=== PATIENT | female | born 1955 | race Caucasian/White ===

== ENCOUNTER 2021-03-11 07:32 | Observation (INO) | payer OTHER, MEDICAID, SELFPAY ==
[2021-03-11] VITALS (27 sets, daily range): BP systolic 160–244; BP diastolic 73–109; PULSE 74–102; RESP 12–27; TEMP 36.2–37.3; O2SAT 60–99; BMI 24.0; BMI 23.2
--- NOTE | 2021-03-11 08:18 | ED_ITS ---
HPI - Altered Mental Status General Chief Complaint: Weakness Stated Complaint: high BP, stomach pain, bleeding x7 days Time Seen by Provider: 03/11/21 08:02 Source: patient, family and RN notes reviewed Mode of arrival: Family Vehicle Limitations: no limitations History of Present Illness HPI narrative: Patient is a 65-year-old female history of chronic kidney disease, strokes, UTI, hypertension presenting with high blood pressure and decreasing mental status. She apparently was admitted to [facility] on March 03 she had a dialysis catheter that according to daughter was bothering her and it was removed. According to the [facility] report there appears to have been conversations of palliative care and hospice however daughter says from her recent hospital stay she no longer needs hospice but is not getting dialysis any longer. She has been getting around by wheelchair for over a month she needs help with her daily living activities there has been a gradual decline. However daughter says yesterday she was talking more than she is today she overall seems weak and lethargic. She is complaining of nausea and abdominal pain. Blood pressure is noted to be quite elevated with systolic greater than 200. She is afebrile. Patient denies any chest pain or palpitations no headache she does not have any vomiting. Previous strokes have left her left side weaker than her right but no new deficits are noted. Daughter says she was rubbing her eye more and thought she might be having another stroke. Daughter is DPOA but patient currently lives with son on [place]. Patient has had at least 4 small infarcts in right lateral mid brain, left caudate, corpus clots some and left occipital lobe which were likely embolic in the setting of hypercoagulable state with subtherapeutic INR who now has left- sided weakness and expressive aphasia. She was discharged from inpatient rehab in [facility] on 11/11/2020. Since then patient had progression chronic kidney disease leading her to end stage and was placed on hemodialysis. She was on dialysis for 2 months as a promise to her and she stopped in late January and enrolled in hospice on 02/06/2021. She had decided to be comfort care and most of her medications including warfarin were stopped at that time. She is primarily bedbound and is able to transfer to a wheelchair with a lot of assistance. She had improvement of her creatinine and was making urine so thought not to need dialysis at that time. She was brought into the hospital on 03/03/2021 for thought of having an infected dialysis catheter she was distant rolled from hospice so that the CT catheter could be removed. Related Data Allergies Allergy/AdvReac Type Severity Reaction Status Date / Time No Known Drug Allergies Allergy Verified 03/11/21 08:25 Review of Systems Review of Systems ROS Unobtainable: All systems reviewed & are unremarkable except as noted in HPI and below Constitutional Constitutional: Denies chills, Denies fever(s), Denies frequent falls, Denies headache(s), Reports lethargy and Reports weakness Eyes Eyes: Reports as per HPI and Reports irritation ENT Ears, Nose, Mouth, and Throat: Denies headache(s) Cardiovascular Cardiovascular: Denies chest pain, Denies syncope, Denies irregular heart rhythm, Denies lightheadedness, Denies palpitations, Denies dyspnea, Denies dyspnea on exertion and Denies orthopnea Respiratory Respiratory: Denies cough, Denies dyspnea, Denies dyspnea on exertion and Denies wheezing Gastrointestinal Gastrointestinal: Reports abdominal pain, Denies change in bowel habits, Denies diarrhea, Reports nausea and Denies vomiting Genitourinary Genitourinary: Reports as per HPI Genitourinary: Reports as per HPI Musculoskeletal Musculoskeletal: Denies back pain, Denies myalgias and Denies numbness Integumentary/Breasts Skin/Breast: Denies pruritus, Denies erythema, Denies rash and Denies wounds Neurologic Neurologic: Reports as per HPI, Denies abnormal speech, Denies syncope, Denies frequent falls, Denies headache(s), Denies numbness and Reports weakness Endocrine Endocrine: Denies palpitations Allergic/Immunologic Allergic/Immunologic: Denies wheezing Patient History Medical History Atrial fibrillation Chronic kidney disease Coronary artery disease CVA (cerebral vascular accident) Depression Hypertension Seizure disorder Social History Smoking Status: Never smoker Exam Initial Vital Signs Initial Vital Signs: Vital Signs Pulse Rate 93 H 03/11/21 08:01 Blood Pressure 240/107 H 03/11/21 08:01 Pulse Oximetry 98 03/11/21 08:01 GENERAL: Generally weak alert female and in no acute distress. HEENT: Head atraumatic,EOMI, pupils reactive, face symmetric, dry mucous membranes, voice is quite thin and soft CARDIOVASCULAR: Regular rate and rhythm without murmurs, rubs or gallops. RESPIRATORY: Breath sounds equal bilaterally, no wheezes rales or rhonchi. ABDOMEN: Soft, minimal nonfocal tenderness. Normoactive bowel sounds all 4 quadrants. No guarding or rebound. EXTREMITIES: Normal range of motion, no clubbing or edema. Neurovascularly intact NEUROLOGICAL: Alert and oriented x4.Normal gait and speech. Cranial nerves II through XII grossly intact. Good [id number], slightly greater strength in right > left, no dysarthria or aphasia, sensation in tact to soft touch bilaterally, no visual changes, no facial droop SKIN: Warm, dry, no laceration, no petechiae, no rashes or lesions. Course Orders Ordered: ED Orders 03/11/21 08:20 CT head/brain wo con Stat XR chest 1V Stat 03/11/21 08:40 Complete Blood Count AUTO DIFF Stat Comprehensive Metabolic Panel Stat Lactate (Lactic Acid) Stat Partial Thromboplastin Time Stat Procalcitonin Stat Prothrombin Time INR Stat Troponin & CK Cardiac Panel Stat 03/11/21 09:30 Blood Culture Stat 03/11/21 11:10 Troponin I Stat 03/11/21 11:50 Urine Microscopic Stat 03/11/21 14:16 Consult to [employer] [facility] - Machine Cleaner Stat Discontinued Medications Labetalol HCl (Labetalol 20 Mg/4 Ml Syringe) 10 mg IV NOW ONE Stop: 03/11/21 10:18 Last Admin: 03/11/21 10:56 Dose: 10 mg Documented by: KANA Vital Signs Vital signs: Vital Signs - 8 hr 03/11/21 08:01 03/11/21 08:12 03/11/21 08:30 Temperature 97.2 F L Pulse Rate 93 H 102 H 95 H Respiratory Rate 18 20 Blood Pressure 240/107 H 215/100 H 221/95 H Pulse Oximetry 98 98 90 L 03/11/21 09:00 03/11/21 09:30 03/11/21 09:57 Temperature Pulse Rate 86 89 94 H Respiratory Rate 18 19 21 Blood Pressure 226/98 H Pulse Oximetry 98 60 L 96 03/11/21 10:00 03/11/21 10:30 03/11/21 10:56 Temperature Pulse Rate 100 H 93 H 91 H Respiratory Rate 22 21 Blood Pressure 240/107 H 240/107 H Pulse Oximetry 97 98 03/11/21 11:00 03/11/21 11:06 03/11/21 11:28 Temperature Pulse Rate 84 79 74 Respiratory Rate 25 H 22 20 Blood Pressure 227/92 H 217/88 H 217/88 H Pulse Oximetry 96 95 96 03/11/21 11:30 03/11/21 12:00 03/11/21 12:02 Temperature Pulse Rate 89 84 83 Respiratory Rate 16 27 H Blood Pressure 177/86 H 240/101 H 219/98 H Pulse Oximetry 95 98 03/11/21 12:03 03/11/21 12:10 03/11/21 12:30 Temperature 97.8 F Pulse Rate 86 85 81 Respiratory Rate 20 18 12 Blood Pressure 219/98 H 219/98 H 229/100 H Pulse Oximetry 98 97 98 03/11/21 13:00 03/11/21 13:30 03/11/21 14:00 Temperature Pulse Rate 84 101 H 89 Respiratory Rate 21 12 25 H Blood Pressure 191/73 H 244/109 H Pulse Oximetry 99 97 96 03/11/21 14:01 Temperature Pulse Rate 98 H Respiratory Rate 22 Blood Pressure 231/99 H Pulse Oximetry 98 MDM - Altered Mental Status Lab Data Attestation: I reviewed the patient's lab results. Result diagrams: 03/11/21 08:40 03/11/21 08:40 Labs: Lab Results 03/11/21 03/11/21 03/11/21 Range/Units 08:40 08:40 08:40 WBC 8.7 (4.5-11.0) X10^3/uL RBC 3.90 L (4.0-5.2) X10^6/uL Hgb 11.4 L (12.0-16.0) g/dL Hct 35.3 L (36-46) % MCV 90.5 (80-100) fL MCH 29.3 (26-34) PG MCHC 32.4 (30-36) % RDW 18.4 H (11.6-14.8) % Plt Count 261 (150-400) X10^3/uL Neut % (Auto) 79.8 H (50-75) % Lymph % (Auto) 10.9 L (25-40) % [place] % (Auto) 5.4 (3-14) % Eos % (Auto) 2.5 (2-4) % Baso % (Auto) 1.4 (0-2) % Neut # (Auto) 7000 (3341-2642) /uL Lymph # (Auto) 900 L (6326-6736) /uL [place] # (Auto) 500 (0-900) /uL Eos # (Auto) 200 (0-450) /uL Baso # (Auto) 100 (0-100) /uL PT 11.3 (10.1-12.7) SECONDS INR 1.0 (0.9-1.3) APTT (26.4-36.2) SECONDS Sodium 142 (137-145) mmol/L Potassium 3.8 (3.4-5.1) mmol/L Chloride 114 H (98-107) mmol/L Carbon Dioxide 20 L (22-32) mmol/L BUN 31 H (7-17) mg/dL Creatinine 2.70 H (0.52-1.04) mg/dL Estimated GFR 17.7 L (>60) mL/min BUN/Creatinine Ratio 11.5 (6-22) Glucose 104 (80-110) mg/dL Lactate (0.7-2.1) mmol/L Calcium 9.4 (8.4-10.2) mg/dL Total Bilirubin 0.2 (0.2-1.3) mg/dL AST 18 (14-36) IU/L ALT 11 (<35) IU/L Alkaline Phosphatase 99 (38-126) U/L Total Creatine Kinase < 20 L (30-135) U/L CK-MB (CK-2) TNP CK-MB (CK-2) Rel Index TNP Troponin I 0.042 H (0.01-0.034) ng/mL Total Protein 6.5 (6.3-8.2) g/dL Albumin 3.2 L (3.5-5.0) g/dL Globulin 3.3 (1.7-4.1) g/dL Albumin/Globulin Ratio 1.0 (1.0-2.8) Procalcitonin 0.20 (<0.5) ng/mL Urine RBC (0-5/HPF) Urine WBC (0-5/HPF) Ur Squamous Epith Cells (0-5/HPF) Amorphous Sediment Urine Bacteria (None) Ur Culture Indicated? 03/11/21 03/11/21 03/11/21 Range/Units 08:40 08:40 11:10 WBC (4.5-11.0) X10^3/uL RBC (4.0-5.2) X10^6/uL Hgb (12.0-16.0) g/dL Hct (36-46) % MCV (80-100) fL MCH (26-34) PG MCHC (30-36) % RDW (11.6-14.8) % Plt Count (150-400) X10^3/uL Neut % (Auto) (50-75) % Lymph % (Auto) (25-40) % [place] % (Auto) (3-14) % Eos % (Auto) (2-4) % Baso % (Auto) (0-2) % Neut # (Auto) (0634-6873) /uL Lymph # (Auto) (6688-2817) /uL [place] # (Auto) (0-900) /uL Eos # (Auto) (0-450) /uL Baso # (Auto) (0-100) /uL PT (10.1-12.7) SECONDS INR (0.9-1.3) APTT 36 (26.4-36.2) SECONDS Sodium (137-145) mmol/L Potassium (3.4-5.1) mmol/L Chloride (98-107) mmol/L Carbon Dioxide (22-32) mmol/L BUN (7-17) mg/dL Creatinine (0.52-1.04) mg/dL Estimated GFR (>60) mL/min BUN/Creatinine Ratio (6-22) Glucose (80-110) mg/dL Lactate 1.1 (0.7-2.1) mmol/L Calcium (8.4-10.2) mg/dL Total Bilirubin (0.2-1.3) mg/dL AST (14-36) IU/L ALT (<35) IU/L Alkaline Phosphatase (38-126) U/L Total Creatine Kinase (30-135) U/L CK-MB (CK-2) CK-MB (CK-2) Rel Index Troponin I 0.041 H (0.01-0.034) ng/mL Total Protein (6.3-8.2) g/dL Albumin (3.5-5.0) g/dL Globulin (1.7-4.1) g/dL Albumin/Globulin Ratio (1.0-2.8) Procalcitonin (<0.5) ng/mL Urine RBC (0-5/HPF) Urine WBC (0-5/HPF) Ur Squamous Epith Cells (0-5/HPF) Amorphous Sediment Urine Bacteria (None) Ur Culture Indicated? 03/11/21 Range/Units 11:50 WBC (4.5-11.0) X10^3/uL RBC (4.0-5.2) X10^6/uL Hgb (12.0-16.0) g/dL Hct (36-46) % MCV (80-100) fL MCH (26-34) PG MCHC (30-36) % RDW (11.6-14.8) % Plt Count (150-400) X10^3/uL Neut % (Auto) (50-75) % Lymph % (Auto) (25-40) % [place] % (Auto) (3-14) % Eos % (Auto) (2-4) % Baso % (Auto) (0-2) % Neut # (Auto) (7580-7640) /uL Lymph # (Auto) (8191-6573) /uL [place] # (Auto) (0-900) /uL Eos # (Auto) (0-450) /uL Baso # (Auto) (0-100) /uL PT (10.1-12.7) SECONDS INR (0.9-1.3) APTT (26.4-36.2) SECONDS Sodium (137-145) mmol/L Potassium (3.4-5.1) mmol/L Chloride (98-107) mmol/L Carbon Dioxide (22-32) mmol/L BUN (7-17) mg/dL Creatinine (0.52-1.04) mg/dL Estimated GFR (>60) mL/min BUN/Creatinine Ratio (6-22) Glucose (80-110) mg/dL Lactate (0.7-2.1) mmol/L Calcium (8.4-10.2) mg/dL Total Bilirubin (0.2-1.3) mg/dL AST (14-36) IU/L ALT (<35) IU/L Alkaline Phosphatase (38-126) U/L Total Creatine Kinase (30-135) U/L CK-MB (CK-2) CK-MB (CK-2) Rel Index Troponin I (0.01-0.034) ng/mL Total Protein (6.3-8.2) g/dL Albumin (3.5-5.0) g/dL Globulin (1.7-4.1) g/dL Albumin/Globulin Ratio (1.0-2.8) Procalcitonin (<0.5) ng/mL Urine RBC None seen (0-5/HPF) Urine WBC 5-10/hpf H (0-5/HPF) Ur Squamous Epith Cells 5-10 /hpf H (0-5/HPF) Amorphous Sediment 2+ Urine Bacteria Many (>30) H (None) Ur Culture Indicated? Cult not indicated Urine Dip Bedside Urine Glucose Negative Bedside Urine Bilirubin - Negative Bedside Urine Ketone - Negative Urine Specific [place] 1.030 Bedside Urine Occult Blood ++ Bedside Urine pH 6.0 Bedside Urine Protein ++ 100 Bedside Urine Urobilinogen - Negative Bedside Urine Nitrite - Negative Bedside Urine Leukocytes +/- [address] scan - head: Radiologist's Impression: PROCEDURE: CT HEAD/BRAIN WO CON INDICATIONS: weakness, prior strokes TECHNIQUE: Noncontrast 4.5 mm thick angled axial sections acquired from the foramen magnum to the vertex, with coronal and sagittal reformats. For radiation dose reduction, the following was used: automated exposure control, adjustment of mA and/or kV according to patient size. COMPARISON: None. FINDINGS: Image quality: Excellent. CSF spaces: Basal cisterns are patent. No extra-axial fluid collections. The ventricles are symmetric in size and shape. Brain: No intracranial bleeds or masses. There is cerebral volume loss for age, with resultant ventricular and sulcal prominence. There are severe periventricular and deep white matter chronic small vessel ischemic changes. Old fairly large predominantly deep white matter right MCA distribution infarct which extends to the cortex as well. Old focal left MCA distribution frontal temporal infarct. Old right thalamic lacuna r infarct. There is intracranial internal carotid artery atherosclerosis. Skull and face: Calvarium and visualized facial bones appear intact, without suspicious lesions. Sinuses: Visualized sinuses and mastoids are clear. IMPRESSION: 1. Severe small vessel ischemic change, multiple old infarcts. 2. No evidence of acute stroke, hemorrhage, or mass. Dictated by: Edgardo Lowry M.D. on 03/11/2021 at 9:14 Chest x-ray: Radiologist's Impression: PROCEDURE: XR CHEST 1V INDICATIONS: weakness TECHNIQUE: One view of the chest was acquired. COMPARISON: None. FINDINGS: Surgical changes and devices: None. Lungs and pleura: Lungs are clear. No pleural effusions or pneumothorax. Mediastinum: Mediastinal contours appear normal. Mild cardiomegaly. Bones and chest wall: No suspicious bony lesions. Overlying soft tissues appear unremarkable. IMPRESSION: Mild cardiomegaly. No evidence acute pulmonary process. Dictated by: Edgardo Lowry M.D. on 03/11/2021 at 9:16 Approved by: Edgardo Lowry M.D. on 03/11/2021 at 9:17 ECG Data Attestation: I personally reviewed and interpreted this ECG as follows: Prior ECG tracings: not available for review Interpretation: Normal sinus rhythm rate 89 p.r. interval 152 QRS [address] changes or T-wave inversions no priors to compare Q-wave noted in ATV F only. MDM Narrative Medical decision making narrative: Patient is alert she is very soft-spoken but is able to answer some questions. I have spoken with her about her goals she does not want dialysis she states that she has not been taking her medications she is not sure if she should. I have discussed with daughter who apparently left to go back to [place]. The patient is difficult to care for at home they are requiring more help and what is available to them. The patient has not yet read and rolled in hospice she is not taking her medications she is per sistently hypertensive with systolic greater than 200. I did give her dose of labetalol in the ED which helped only slightly. This may or may not be contributing to her worsening weakness. Patient says that she does not want dialysis have discussed with her hospice as an option. Indeterminate troponin thought to be due to chronic kidney disease with little size changer 2 hours rather than cardiac. She has no sign of infection no leukocytosis or signs of UTI. The patient's abdomen is soft continues to be soft in the emergency department. At this time I see no need for imaging. She has not required anything for pain while in the emergency department. Dr. Shirley in ED to see and evaluate patient accepts for observation Discharge Plan Departure Patient Disposition: Admitted As Inpatient Clinical Impression: Hypertensive emergency, Chronic kidney disease Admit Date/Time: 03/11/21 14:16 Admit Provider: Daniel Shirley
[2021-03-11 08:56] LABS: Add Manual Diff / Slide Review NO; Basophils Absolute Auto 100 /uL (0-100); Basophils Percent Auto 1.4 % (0-2); Eosinophils Absolute Auto 200 /uL (0-450); Eosinophils Percent Auto 2.5 % (2-4); Hematocrit 35.3 % (36-46); Hemoglobin 11.4 g/dL (12.0-16.0); Lymphocytes Absolute Auto 900 /uL (1100-4500); Lymphocytes Percent Auto 10.9 % (25-40); Mean Corpuscular HGB Conc 32.4 % (30-36); Mean Corpuscular Hemoglobin 29.3 PG (26-34); Mean Corpuscular Volume 90.5 fL (80-100); Monocytes Absolute Auto 500 /uL (0-900); Monocytes Percent Auto 5.4 % (3-14); Neutrophils Absolute Auto 7000 /uL (1500-7000); Neutrophils Percent Auto 79.8 % (50-75); Platelet Count 261 X10^3/uL (150-400); Red Cell Distribution Width 18.4 % (11.6-14.8); White Blood Cell Count 8.7 X10^3/uL (4.5-11.0)
[2021-03-11 09:01] LABS: Prothrombin Time 11.3 SECONDS (10.1-12.7)
[2021-03-11 09:05] LABS: Lactate (Lactic Acid) 1.1 mmol/L (0.7-2.1)
[2021-03-11 09:06] LABS: Alanine Aminotransferase 11 IU/L (<35); Albumin 3.2 g/dL (3.5-5.0); Alkaline Phosphatase 99 U/L (38-126); Aspartate Aminotransferase 18 IU/L (14-36); BUN Creatinine Ratio 11.5 (6-22); Bilirubin Total 0.2 mg/dL (0.2-1.3); Blood Urea Nitrogen 31 mg/dL (7-17); Calcium 9.4 mg/dL (8.4-10.2); Carbon Dioxide 20 mmol/L (22-32); Chloride 114 mmol/L (98-107); Creatine Kinase < 20 U/L (30-135); Estimated Glomerular Filt Rate 17.7 mL/min (>60); Globulin 3.3 g/dL (1.7-4.1); Glucose 104 mg/dL (80-110); HEMOLYSIS < 15 (0-50); Potassium 3.8 mmol/L (3.4-5.1); Sodium 142 mmol/L (137-145); Total Protein 6.5 g/dL (6.3-8.2)
[2021-03-11 09:10] LABS: PTT Partial Thromboplastin Tim 36 SECONDS (26.4-36.2)
[2021-03-11 09:19] LABS: Troponin I 0.042 ng/mL (0.01-0.034)
[2021-03-11] MEDS: LABETALOL 20 MG/4 ML SYRINGE 10 MG IV (10:56)
[2021-03-11 11:46] LABS: Troponin I 0.041 ng/mL (0.01-0.034)
[2021-03-11 12:34] LABS: RBC Urine None Seen (0-5/HPF)
[2021-03-11 12:44] LABS: Amorphous Sediment Urine 2+; Squamous Epithelial Cell Urine 5-10 /HPF (0-5/HPF); WBC Urine 5-10/HPF (0-5/HPF)
[2021-03-11 12:45] LABS: Bacteria Urine Many (>30); Culture Indicated Urine Cult Not Indicated
--- NOTE | 2021-03-11 13:05 | PC.NURSE ---
called daughter, Supriya tran 2 and son Garth. pt is to be discharged and Dr. Echols would like to speak to the family. No call back.
[2021-03-11] MEDS: carvediloL 12.5 MG TABLET PO (16:20)
[2021-03-11] MEDS: AMLODIPINE 5 MG TABLET 10 MG PO (16:20)
--- NOTE | 2021-03-11 17:50 | PC.NURSE ---
Addendum entered by Thu Mccurdy R.N. 03/11/21 22:06: Pt restless, moving about the bed. Calls out into hallway and staff attend to pt. Pt states feels stomach is upset, but can provide no further details or discussion. Pt denies need to void. Repositioned in bed with staff members x 2. Head of bed elevated and pt given ativan. Pt turns self over in bed and closes eyes. Bed alarm in place. Addendum entered by Thu Mccurdy R.N. 03/11/21 20:08: Pt calling out into hallway. This headline writer enters room and pt has legs drawn up. Asked pt if scd's are causing discomfort. Pt relies, They send shooting pain up my leg. Scd's removed. Pt turns self and positions self in bed. Buttocks is reddened and barrier cream was liberally applied. Addendum entered by Thu Mccurdy R.N. 03/11/21 19:29: Pt restless in bed and moving legs off of bed. Inquired of pt if needs to urinate and pt nods in the affirmative. Placed on bedpan and pt is able to lift hips for placement. Incontinent in brief urine and stool but no void in bedpan. Inquired of pt if having pain and patient puts hand on above pubis, but provides no further conversation. Tylenol administered for comfort. Original Note: Pt is nonverbal when this headline writer performs assessment. Follows commands appropriately. Generalized weakness. Head of bed upright for meds/oral intake. No swallowing deficit noticed. Dinner tray set up and pt is able to feed self. Denies pain when asked.
[2021-03-11 18:11] LABS: COVID19 - ADMIT (NP swab/PCR) Negative (Negative)
[2021-03-11] MEDS: ACETAMINOPHEN 325 MG TABLET 650 MG PO (19:39)
[2021-03-11] MEDS: ATORVASTATIN 20 MG TABLET 40 MG PO (20:16)
[2021-03-11] MEDS: carvediloL 12.5 MG TABLET 25 MG PO (20:17)
[2021-03-11] MEDS: levETIRAcetam 250 MG TABLET 500 MG PO (20:17)
[2021-03-11] MEDS: HEPARIN 5,000 UNIT/ML VIAL 5000 UNIT SUBCUT (20:17)
[2021-03-11] MEDS: SERTRALINE 50 MG TABLET 25 MG PO (20:18)
[2021-03-11] MEDS: SODIUM CHLORIDE 0.9% FLUSH 10 ML IV (20:19)
[2021-03-11] MEDS: LORazepam 0.5 MG TABLET PO (21:12)
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
[2021-03-12] VITALS (15 sets, daily range): BP systolic 126–198; BP diastolic 52–81; PULSE 72–95; RESP 14–18; TEMP 36.3–37.6; O2SAT 93–98
[2021-03-12 06:14] LABS: Add Manual Diff / Slide Review NO; Basophils Absolute Auto 100 /uL (0-100); Basophils Percent Auto 0.7 % (0-2); Eosinophils Absolute Auto 300 /uL (0-450); Hematocrit 31.4 % (36-46); Hemoglobin 10.4 g/dL (12.0-16.0); Lymphocytes Absolute Auto 1100 /uL (1100-4500); Lymphocytes Percent Auto 14.7 % (25-40); Mean Corpuscular HGB Conc 33.2 % (30-36); Mean Corpuscular Volume 90.4 fL (80-100); Monocytes Absolute Auto 500 /uL (0-900); Monocytes Percent Auto 6.7 % (3-14); Neutrophils Absolute Auto 5600 /uL (1500-7000); Neutrophils Percent Auto 73.9 % (50-75); Platelet Count 226 X10^3/uL (150-400); Red Blood Cell Count 3.47 X10^6/uL (4.0-5.2); White Blood Cell Count 7.5 X10^3/uL (4.5-11.0)
[2021-03-12 06:35] LABS: BUN Creatinine Ratio 11.6 (6-22); Blood Urea Nitrogen 30 mg/dL (7-17); Calcium 8.8 mg/dL (8.4-10.2); Carbon Dioxide 20 mmol/L (22-32); Chloride 113 mmol/L (98-107); Estimated Glomerular Filt Rate 18.6 mL/min (>60); Glucose 98 mg/dL (80-110); HEMOLYSIS < 15 (0-50); Potassium 3.8 mmol/L (3.4-5.1); Sodium 140 mmol/L (137-145)
[2021-03-12] MEDS: HYDRALAZINE 10 MG TABLET PO ×3 (08:34→22:26)
[2021-03-12] MEDS: levETIRAcetam 250 MG TABLET 500 MG PO ×2 (08:38→21:09)
[2021-03-12] MEDS: ASPIRIN EC 81 MG TABLET PO (08:38)
[2021-03-12] MEDS: carvediloL 12.5 MG TABLET 25 MG PO ×2 (08:38→21:09)
[2021-03-12] MEDS: HEPARIN 5,000 UNIT/ML VIAL 5000 UNIT SUBCUT ×2 (08:38→21:06)
[2021-03-12] MEDS: AMLODIPINE 5 MG TABLET 10 MG PO (08:38)
[2021-03-12] MEDS: SODIUM CHLORIDE 0.9% FLUSH 10 ML IV ×2 (08:39→21:06)
--- NOTE | 2021-03-12 10:47 | PT.IIE ---
Medical History (Last Reviewed 03/11/21 @ 22:16 by Daniel Shirley MD) Atrial fibrillation Chronic kidney disease Coronary artery disease CVA (cerebral vascular accident) Depression Hypertension Seizure disorder Physical Therapy Inpatient Evaluation/Re-Eval M1 PT/OT-IP Prior Functional Status Start: 03/12/21 08:44 Freq: NEEDED Status: Active Protocol: Document 03/12/21 10:47 AW (Rec: 03/12/21 13:06 AW [id number]) Medical Review Prior Functional Status Medical History Reviewed Yes Communication Per pt's daughter/DPOA, Supriya, pt has better and worse days with communication. She has had multiple CVA's and has some expressive aphasia or at least needs extra processing time. Some days she is more verbal than others. Mobility and Gait Pt has been largely bedbound for several months. Her son-in -law and son have been providing assist for stand pivot transfers to wheelchair. She worked with PT earlier this year and at that time was able to use a walker for transfers and ambulation up to ~20 feet. She has not walked for several months. Activities of Daily Living and IADL's Pt requires assist with all ADL's. She is able to feed herself with supervision but family endorse occasional aspiration. Social History Household Members spouse Additional Social History Comment Pt was in rehab earlier this year and discharged to home with her . She has since been living with her son or her daughter who have been providing all assist. Pt hopes to discharge back to home with her spouse. M2 PT-IP Current Condition Start: 03/12/21 08:44 Freq: NEEDED Status: Active Protocol: Document 03/12/21 10:47 AW (Rec: 03/12/21 13:06 AW [id number]) Physical Therapy Current Condition Current Condition Evaluation Date 03/12/21 Treatment Diagnosis hypertensive urgency; impaired mobility Onset Date 03/11/21 M3 PT-IP Subjective Start: 03/12/21 08:44 Freq: NEEDED Status: Active Protocol: Document 03/12/21 10:47 AW (Rec: 03/12/21 13:06 AW [id number]) Subjective Physical Therapy Visit Type Type Initial Evaluation Visit Start Time 10:27 Visit Stop Time 10:47 Total Visit Minutes 20 Notes Pt's daughter/DPOA provided much history over the phone. Number of APPRAISER Visits 0 Physical Therapy Visit Comments Patient Comments Pt is willing to participate with PT Patient Goals Unable to ascertain Therapy Pain Assessment Pain When Pain Assessed During Mobility Pain Present Pain Present Unable to Respond FLACC Pain Scale Face Occasional grimace/frown Legs Normal position; relaxed Activity Quiet, moves easily Cry No cry (awake or asleep) Consolability Content, relaxed FLACC Total 1 M4 PT-IP Mobility and Gait Start: 03/12/21 08:44 Freq: NEEDED Status: Active Protocol: Document 03/12/21 10:47 AW (Rec: 03/12/21 13:06 AW [id number]) PT-Bed Mobility Assessment Supine to Sit Supine to Sit Maximum Assistance,1 Person Assistance,Head of Bed Elevated,Bedrails Scooting Scooting to Edge of Bed Maximum Assistance PT-Transfer Assessment Sit to and From Stand Sit to and from Stand Maximum Assistance,1 Person Assistance Equipment Transfer Assistive Device Gait Belt Orthotic/Prosthetic Devices or Brace: No Transfers Transfer Destination Chair Transfer Technique Stand Pivot Transfer Ability Level of Assist Maximum Assistance,1 Person Assistance,2 Person Assistance Comments Mobility Comments Pt was reclined in bed as PT arrived and she was difficult to rouse. She did respond to commands and was able to begin moving her legs toward EOB but ultimately required max assist to transition to sitting EOB and constant balance assist in sitting. Pt attempted to scoot herself to feet flat on the floor but needed max assist. With gait belt donned, PT provided max assist for pt to stand. She needed max cueing and assist to shift her weight in preparation for transfer to the chair set up 90 degrees to her left. Pt attempted to scoot back on the chair but needed assist for positioning. She was left with call light and tray table in reach. Alertness did improve during and after mobility. BP beginning of session was 151/ 68 HR 74. After transfer, BP was 130/70 HR 78. Gait Assessment Comments Gait Comments Pt unable at this time. Stair Climbing Assessment Comments Stair Climbing Comments Not assessed. Pt not safe for ambulation. PT-Balance Assessment Sitting Balance and Reactions Static Sitting Balance Ability Poor Dynamic Sitting Balance Ability Poor Standing Balance and Reactions Static Standing Balance Ability Poor Dynamic Standing Balance Ability Poor Device Used gait belt M5 PT-IP Objective Assessments Start: 03/12/21 08:44 Freq: NEEDED Status: Active Protocol: Document 03/12/21 10:47 AW (Rec: 03/12/21 13:06 AW [id number]) Orientation Orientation/Cognition Level of Alertness Lethargic Orientation Name Language Function Ability Expressive Aphasia Safety Awareness Decreased Safety Awareness Gross Range of Motion Lower Extremity ROM Assessment Within Functional Limits Strength Lower Extremity Strength Assessment Bilaterally Impaired Hip 3-/5 Knee 3-/5 Coordination Assessment Assessment Coordination Comments Unable to assess Sensation Assessment Comments Sensation Comments Unable to assess M6 PT-IP Treatment Start: 03/12/21 08:44 Freq: NEEDED Status: Active Protocol: Document 03/12/21 10:47 AW (Rec: 03/12/21 13:06 AW [id number]) Physical Therapy Treatment Education Education Provided Safety M7 PT-IP Assessment and Plan Start: 03/12/21 08:44 Freq: NEEDED Status: Active Protocol: Document 03/12/21 10:47 AW (Rec: 03/12/21 13:06 AW [id number]) PT Summary Assessment and Plan Potential Rehabilitation Potential Fair Status of Condition at Evaluation Evolving Summary Impairments Strength,Balance,Coordination, Cognition,Bed Mobility, Transfers,Gait,Activity Tolerance Assessment Summary Isela is a 65 yo woman with complicated medical history and admitting diagnosis of hypertensive urgency. Pt has history of multiple CVA's, CKD stage 5. She was in some type of rehab setting earlier this year and was able to use a walker for transfers and ambulation ~10 feet. Since that time, her mobility has declined and she now requires max to total assist with transfers and ADL's. Pt was able to participate with therapy on evaluation, following simple commands and attempting to scoot, stand, and transfer. She is requiring max to total assist for bed mobility and transfers. She would benefit from SNF rehab but it is unclear is this is consistent with her goals of care. If pt discharges to home setting, PT will conduct caregiver training with primary caregiver and home health therapy would be recommended. Goals Bed Mobility Goal Moderate Assistance Transfer Goal Moderate Assistance Other Goals - improve transfer to min assist with FWW Days to Meet Goals 10 Frequency of Treatment Frequency Of Treatment Once a Day Treatment Plan Physical Therapy Treatment Plan Bed Mobility Training,Transfer Training,Gait Training, Therapeutic Exercise,Balance Retraining,Discharge Planning, Hot or Cold Pack,Neuromuscular Re-ed,Coordination Retraining Other Recommendations and Next Treatment sitting balance, transfers, Focus sit to stand Recommendations To Nursing Amount of Assist Needed Mechanical Lift Discharge Recommendations PT Discharge Recommendations Home vs SNF Other Discharge Recommendations SNF vs home with 29/04 assist and HH Equipment Needed for Home Before BSC, ... Discharge Transportation Needs at Discharge Wheelchair/Cabulance
--- NOTE | 2021-03-12 15:24 | PM.PN.1 ---
Subjective Subjective Date Patient Seen: 03/12/21 Time Patient Seen: 07:24 Interval history: Today she has no complaints. She is not verbalizing much responses to my questions. Exam Vital Signs (past 8 hours): - 03/12/21 08:34 03/12/21 08:35 03/12/21 08:38 Temperature 97.4 F L Pulse Rate 75 80 79 Respiratory Rate Blood Pressure 194/77 H 194/77 H 194/77 H Pulse Oximetry 98 03/12/21 10:30 03/12/21 12:31 03/12/21 14:09 Temperature Pulse Rate 74 72 78 Respiratory Rate 16 Blood Pressure 151/68 H 128/52 L 171/74 H Pulse Oximetry 97 Oxygen Delivery Method Room Air Oxygen Flow Rate 0 Narrative Exam Narrative: GENERAL: chronically ill appearing, frail woman, no acute distress HEENT: PERRL, dry mucous membranes NECK: trachea midline, no JVD CARDIOVASCULAR: Regular rate and rhythm without murmurs RESPIRATORY: clear bilaterally, no wheezes rales or rhonchi. ABDOMEN: Soft, minimal nonfocal tenderness. Normal bowel sounds, no organomegaly EXTREMITIES: warm and well perfused no edema NEUROLOGICAL: awake and alert, strength R>L which per notes is baseline SKIN: Warm, with no rashes Objective Labs Result Diagrams: 03/12/21 05:30 03/12/21 05:30 Labs: Laboratory Results - last 24 hr 03/11/21 03/12/21 03/12/21 16:20 05:30 05:30 WBC 7.5 RBC 3.47 L Hgb 10.4 L Hct 31.4 L MCV 90.4 MCH 30.0 MCHC 33.2 RDW 18.0 H Plt Count 226 Neut % (Auto) 73.9 Lymph % (Auto) 14.7 L Rosebud % (Auto) 6.7 Eos % (Auto) 4.0 Baso % (Auto) 0.7 Neut # (Auto) 5600 Lymph # (Auto) 1100 Rosebud # (Auto) 500 Eos # (Auto) 300 Baso # (Auto) 100 Sodium 140 Potassium 3.8 Chloride 113 H Carbon Dioxide 20 L BUN 30 H Creatinine 2.58 H Estimated GFR 18.6 L BUN/Creatinine Ratio 11.6 Glucose 98 Calcium 8.8 SARS-CoV-2 (PCR) Negative [facility], [facility] Medical History Atrial fibrillation Chronic kidney disease Coronary artery disease CVA (cerebral vascular accident) Depression Hypertension Seizure disorder Social History household members: spouse Smoking Status: Never smoker Assessment & Plan Assessment & Plan narrative: Ms. Greco is an 65W with PMH CVA, seizure, CKD stage 5 who presents with weakness and hypertension and family stating unable to care for at home. 1. Hypertensive urgency -patient only on morphine and ativan at home since being on hospice, per family -restart previous medications of coreg and amlodipine and monitor blood pressures -added hydralazine on 03/12 -was previously on clonidine but this has been stopped 2. Hx of CVA -uncertain if they goals of care are consistent with anticoagulation with coumadin -for now will order aspirin and statin 3. CKD stage 4-5 -previously was on HD -but now not within goals of care -on admission creatinine of 2.7, with GFR 17 -continue to monitor creatinine daily, may consider BARRY/ARB if protein in urine 4. Elevated troponin -no symptoms of SC -troponin indeterminate and not rising -likely secondary to CKD 5. Seizure disorder -reordered keppra for now 6. Depression -consider reordering SSRI IVF: none DVT ppx: heparin sc Code: DNR, proxy is daugther Had long discussion with daughter, Supriya, in regards to goals of care. Per daughter, the patient has been consistent with often not wanting certain medical treatments, not wanting to take medications, and wanting to be comfortable at home. Her daughter says that goal would be for patient to return home with additional home nursing care and possibly hospice. She does not think patient will consistently take medications which is why they were stopped previously. She agrees patient has verbalized she would never want dialysis. Plan for discharge to home tomorrow 03/13
--- NOTE | 2021-03-12 16:04 | CM.DANOTE ---
DCP/Assessment: Reviewed chart. Patient is a 65yr old female admitted to [facility] for high [facility]. PCP is at [facility] in [facility]/Dr. Manzo ph# [phone]. Primary payor is 1)Medicare 2)Medicaid. Provider reports that d/c plan unknown at this time? EMBEDDED DEVELOPER consult placed for d/c planning. EMBEDDED DEVELOPER met with patient this AM explained role. Patient with very flat delayed affect. Patient does have h/o CVA's. Patient reports that she would like to return home to [facility] with Bill. Patient does provide CM team with permission to speak with her daughter/GRETEL Epps ph# [phone]. EMBEDDED DEVELOPER placed call to daughter and explained role. Daughter reports that patient was staying with her and brother/Garth [place] prior to admit. Daughter reports that patient previously has been on hospice services? Prior to living with her adult children patient lived in [place] with her significant other/Cl. Although they are not legally daughter reports that they have been together approximately 40yrs. Daughter reports that Cl is her biological father but he is not Garth's. Daughter adds that Garth does not like Bill. Previous A.P.S. involvement with Bill but this has not been confirmed. Daughter agrees that if patient wants to return to her home in [facility] [place] with Bill that she should have that option. Daughter does not identify any issues with her returning there but does report that Bill will need caregiver training. In addition, daughter requesting home health if possible. EMBEDDED DEVELOPER completed expedited ERIN application and faxed to [facility]. Daughter aware and very appreciative. Daughter aware that if patient qualifies she can get caregivers in the home or be placed in Adult Family Home and/or Assisted Living/SNF. Daughter provided EMBEDDED DEVELOPER with Bill's phone number which is ph# [phone]. Placed call to Bill explained role. Bill reports that he would love to bring patient home. D/C anticipated for 03-13-21. Cl has no objection to home health. Cl plans to be at [facility] on 03-13-21 for caregiver training at 2:00pm. Cl hopes to take patient home once training completed. EMBEDDED DEVELOPER left with [facility] ph# [phone] re: availability. Will reattempt call in AM tomorrow. Bill reports that he is attempting to locate a w/c for patient to use in the residence. Provider updated on the above and also has had conversation with daughter today. All in agreement to plan. A.P.S. will need to be called to determine if there is an open case. P: Home with significant other/Bill and potential home health. PRITI Waterman P: Discharge Planning/Care Management CM Discharge Assessment Start: 03/12/21 15:51 Freq: Status: Active Protocol: Document 03/12/21 15:51 KJS (Rec: 03/12/21 16:04 KJS [id number]) Discharge Planning Assessment Assigned Territory Service Representative PRITI Waterman Contact Information Supriya Gorman (daughter) ph# [phone] Advance Directives? No History Provided By Patient,Family Member,Medical Record Prior Living Arrangements House Household Members family Type of transporation used prior to Relies on Others admit Independent with ADL's No Is patient alert and oriented? No: Patient alert but orientation is questionable. Needs Assistance With Bathing,Grooming,Meal Prep, Managing Medications Caregiver for Another No DME Already Rented / Owned Wheelchair Patient/Family Preference Home with Home Health Barriers to Discharge No Discharge Plan Home with Home Health Transportation Arrangement Family to provide transportation. Referrals Initiated Home Health Additional Comment [employer] phone# [phone] If patient plan is home with home health No : Has signed face to face form been completed? Has Agency SNF been contacted Yes Comment Voice mail left with [facility] ph# [phone]. PCP is at [facility] in [facility] ph# [phone] ( Dr. Brown). Review Status In Process Next Review Type Continued Stay Review
--- NOTE | 2021-03-12 17:40 | PC.NURSE ---
Addendum entered by Thu Mccurdy R.N. 03/12/21 23:21: Successful straight cath with 14 Fr completed. Urine sent to lab for urinalysis. Addendum entered by Thu Mccurdy R.N. 03/12/21 18:57: Pt remains awake and alert in bed with head of bed elevated following evening meal. When asked if this sba underwriter could replace pt's scd's, after prolonged silence, pt replies, They're too sharp. Pt expresses interest in television and so [employer] channel was found for pt. Original Note: Discussion with Dr. Shirley re pt's telemetry and verbal order was received to discontinue. ICU informed and this was removed from pt. Informed MD pt incontinent and cannot tell staff when needing to void. Order obtained to straight cath pt for ordered UA. Pt was provided with explanation and nods head in the affirmative will allow. Otherwise remains nonverbal, but does follow simple commands and able to assist with turning and repositioning in bed. Staff remove pt's brief and clean pt's periarea following incontinence of stool when pt has spontaneous void. Proceeded with catheterization and only obtained several drops of urine which lab reports is insufficient to run test. Will re-attempt at later time. Pt set up for dinner and able to feed self with monitoring. Swallow is intact. Nods head in the negative when asked if experiencing pain.
--- NOTE | 2021-03-12 18:06 | PC.NURSE ---
Pt. was alseep and this COIN PURSE FRAMER took her lunch tray away. There was zero intake and output at the start of shift.
[2021-03-12] MEDS: ATORVASTATIN 20 MG TABLET 40 MG PO (21:08)
[2021-03-12] MEDS: SERTRALINE 50 MG TABLET 25 MG PO (21:10)
[2021-03-12 22:53] LABS: Appearance Urine UA CLEAR; Bilirubin Urine UA NEGATIVE (NEGATIVE); Color Urine UA YELLOW; Glucose Urine UA NEGATIVE (Negative); Ketones Urine UA NEGATIVE (NEGATIVE); Leukocyte Esterase Urine UA NEGATIVE (NEGATIVE); Nitrite Urine UA POSITIVE (Negative); Occult Blood Urine UA TRACE-LYSED (Negative); Protein Urine UA 2+ (Negative); Specific Gravity Urine UA 1.025 (1.000-1.035); Urobilinogen Urine UA 0.2 E.U./dL (0.2)
[2021-03-12 22:55] LABS: pH Urine UA 5.5 (4.5-8.0)
[2021-03-12 23:14] LABS: Bacteria Urine Many (>30); Culture Indicated Urine Specimen Cultured; RBC Urine 0-1/HPF (0-5/HPF); Squamous Epithelial Cell Urine 0-1 /HPF (0-5/HPF); WBC Urine 1-5/HPF (0-5/HPF)
[2021-03-13] VITALS (7 sets, daily range): BP systolic 131–151; BP diastolic 50–85; PULSE 70–79; RESP 16–18; TEMP 36.7–37.1; O2SAT 95–98
[2021-03-13 06:00] LABS: Add Manual Diff / Slide Review NO; Basophils Absolute Auto 100 /uL (0-100); Basophils Percent Auto 1.3 % (0-2); Eosinophils Absolute Auto 300 /uL (0-450); Eosinophils Percent Auto 3.9 % (2-4); Hematocrit 30.7 % (36-46); Lymphocytes Absolute Auto 1300 /uL (1100-4500); Mean Corpuscular HGB Conc 32.6 % (30-36); Mean Corpuscular Hemoglobin 29.4 PG (26-34); Mean Corpuscular Volume 90.2 fL (80-100); Monocytes Absolute Auto 500 /uL (0-900); Monocytes Percent Auto 7.9 % (3-14); Neutrophils Absolute Auto 4600 /uL (1500-7000); Neutrophils Percent Auto 67.9 % (50-75); Platelet Count 213 X10^3/uL (150-400); Red Cell Distribution Width 18.2 % (11.6-14.8); White Blood Cell Count 6.7 X10^3/uL (4.5-11.0)
[2021-03-13 06:06] LABS: BUN Creatinine Ratio 11.2 (6-22); Blood Urea Nitrogen 30 mg/dL (7-17); Calcium 8.6 mg/dL (8.4-10.2); Carbon Dioxide 18 mmol/L (22-32); Chloride 112 mmol/L (98-107); Estimated Glomerular Filt Rate 17.9 mL/min (>60); Glucose 94 mg/dL (80-110); HEMOLYSIS < 15 (0-50); Potassium 3.6 mmol/L (3.4-5.1); Sodium 138 mmol/L (137-145)
[2021-03-13] MEDS: HYDRALAZINE 10 MG TABLET PO ×2 (06:25→13:03)
[2021-03-13] MEDS: carvediloL 12.5 MG TABLET 25 MG PO (09:25)
[2021-03-13] MEDS: AMLODIPINE 5 MG TABLET 10 MG PO (09:27)
[2021-03-13] MEDS: ASPIRIN EC 81 MG TABLET PO (09:27)
[2021-03-13] MEDS: HEPARIN 5,000 UNIT/ML VIAL 5000 UNIT SUBCUT (09:27)
[2021-03-13] MEDS: levETIRAcetam 250 MG TABLET 500 MG PO (09:27)
[2021-03-13] MEDS: SODIUM CHLORIDE 0.9% FLUSH 10 ML IV (09:28)
[2021-03-13] MEDS: CEFDINIR 300 MG CAPSULE PO (11:11)
--- NOTE | 2021-03-13 14:43 | PT.IPTN ---
Physical Therapy Treatment Note M2 PT-IP Current Condition Start: 03/12/21 08:44 Freq: NEEDED Status: Active Protocol: Document 03/12/21 10:47 AW (Rec: 03/12/21 13:06 AW [id number]) Physical Therapy Current Condition Current Condition Evaluation Date 03/12/21 Treatment Diagnosis hypertensive urgency; impaired mobility Onset Date 03/11/21 M3 PT-IP Subjective Start: 03/12/21 08:44 Freq: NEEDED Status: Active Protocol: Document 03/13/21 14:43 AW (Rec: 03/13/21 15:00 AW [id number]) Subjective Physical Therapy Visit Type Type Treatment Note Visit Start Time 13:43 Visit Stop Time 14:43 Total Visit Minutes 60 Notes Pt's SO, Cl, was present to participate in caregiver training. Number of WEBSITE OPTIMIZATION STRATEGIST Visits 0 Physical Therapy Visit Comments Patient Comments Pt is more alert and conversant today. She is hopeful to discharge home to be more comfortable and see her dog, Aguirre. Therapy Pain Assessment Pain When Pain Assessed During Mobility Pain Present Pain Present Denied Pain M4 PT-IP Mobility and Gait Start: 03/12/21 08:44 Freq: NEEDED Status: Active Protocol: Document 03/13/21 14:43 AW (Rec: 03/13/21 15:00 AW [id number]) PT-Bed Mobility Assessment Supine to Sit Supine to Sit Moderate Assistance,1 Person Assistance,Bedrails Scooting Scooting to Edge of Bed Maximum Assistance PT-Transfer Assessment Sit to and From Stand Sit to and from Stand Maximum Assistance,1 Person Assistance Equipment Transfer Assistive Device Gait Belt,Front Wheeled Walker Orthotic/Prosthetic Devices or Brace: No Transfers Transfer Destination Bed,Chair,Bedside Commode Transfer Technique Stand Pivot Transfer Ability Level of Assist Maximum Assistance,1 Person Assistance,2 Person Assistance Comments Mobility Comments Pt was in bed as PT arrived. Cl had stepped out. PT assisted pt to EOB with mod assist this date. Pt was highly motivated to make it to the chair. Cl arrived as pt sat EOB. He stated pt has an adjustable bed and two FWW at home. He is working on acquiring a wheelchair. PT instructed Cl on donning a gait belt and he was able to complete with verbal cues. PT demonstrated stand pivot transfer to the chair with gait belt only, stand pivot transfer chair to commode with FWW, and squat pivot with gait belt onl from commode to chair. All transfers required max assist. Pt's SO Cl was able to provide transfer assist for stand pivot with and without FWW but was less successful with squat pivot due to height differential and his own weakness. Discussed how pt would get into the house this evening and Cl indicated his friend's son who is quite strong would be available to assist pt from car to inside. Discussed pt's non-ambulatory status with Cl when he mentioned he hoped pt could get from the bed to the toilet. PT educated pt's SO that pt would need a wheelchair and BSC. BUS WASHER and student BUS WASHER arrived end of session to confirm plan. Gait Assessment Comments Gait Comments Pt unable at this time. PT-Balance Assessment Sitting Balance and Reactions Static Sitting Balance Ability Fair Dynamic Sitting Balance Ability Poor Standing Balance and Reactions Static Standing Balance Ability Poor Dynamic Standing Balance Ability Poor Device Used gait belt; FWW M5 PT-IP Objective Assessments Start: 03/12/21 08:44 Freq: NEEDED Status: Active Protocol: Document 03/12/21 10:47 AW (Rec: 03/12/21 13:06 AW [id number]) Orientation Orientation/Cognition Level of Alertness Lethargic Orientation Name Language Function Ability Expressive Aphasia Safety Awareness Decreased Safety Awareness Gross Range of Motion Lower Extremity ROM Assessment Within Functional Limits Strength Lower Extremity Strength Assessment Bilaterally Impaired Hip 3-/5 Knee 3-/5 Coordination Assessment Assessment Coordination Comments Unable to assess Sensation Assessment Comments Sensation Comments Unable to assess M6 PT-IP Treatment Start: 03/12/21 08:44 Freq: NEEDED Status: Active Protocol: Document 03/13/21 14:43 AW (Rec: 03/13/21 15:00 AW [id number]) Physical Therapy Treatment Education Education Provided Safety Other Treatments Other Treatment Performed Spent most time educating pt's SO on transfer techniques and advising on equipment needs. M7 PT-IP Assessment and Plan Start: 03/12/21 08:44 Freq: NEEDED Status: Active Protocol: Document 03/13/21 14:43 AW (Rec: 03/13/21 15:00 AW [id number]) PT Summary Assessment and Plan Potential Rehabilitation Potential Fair Status of Condition at Evaluation Evolving Summary Impairments Strength,Balance,Coordination, Cognition,Bed Mobility, Transfers,Gait,Activity Tolerance Progress Towards Goals Slow Progress due to Medical Issues,Slow Progress due to Activity Tolerance,Slow Progress - Other Assessment Summary Session was attended by pt's SO, Cl, who participated in transfer training to assist the pt at home. PT demonstrated transfer techniques and Cl was able to assist pt with max assist stand pivot transfers with moderate success. Pt and SO are determined to go home. Hospice will initiate services and bring equipment tomorrow, including hospital bed and wheelchair. Ideally, pt's SO would have additional assist at home, but he and the pt insist they are prepared to go home. Goals Bed Mobility Goal Moderate Assistance Transfer Goal Moderate Assistance Other Goals - improve transfer to min assist with FWW Days to Meet Goals 10 Frequency of Treatment Frequency Of Treatment Once a Day Treatment Plan Physical Therapy Treatment Plan Bed Mobility Training,Transfer Training,Gait Training, Therapeutic Exercise,Balance Retraining,Discharge Planning, Hot or Cold Pack,Neuromuscular Re-ed,Coordination Retraining Other Recommendations and Next Treatment sitting balance, transfers, Focus sit to stand Recommendations To Nursing Amount of Assist Needed 3 or More Person Assist, Mechanical Lift Discharge Recommendations PT Discharge Recommendations Home vs SNF Other Discharge Recommendations SNF vs home with 24/7 assist and HH Transportation Needs at Discharge Wheelchair/Cabulance
--- NOTE | 2021-03-13 15:27 | PC.NURSE ---
Discharge note: Patient discharged home per MD order, discussed importance of F/U with PMD, new medications, antibiotic adherence, home safety, and s/sx of stroke. Information regarding home health, including number given to patient and spouse. Discharge instructions in folder for Home Health. All hard copies of prescriptions given to Bill to fill in pharmacy. Discharged home via private vehicle accompanied by Cl.
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
== END 2021-03-13 15:20 | disposition home or self-care (01) ==
LOC: ED 14:15 → AC 14:17
PROVIDERS: Nurse Practitioner Family; Admitting Provider Internal Medicine; Emergency Provider Emergency Medicine; Referring Provider Emergency Medicine; Visit Provider Internal Medicine
DX: I16.0 Hypertensive urgency (principal); I12.0 Hypertensive chronic kidney disease with stage 5 chronic kidney disease or end stage renal disease; N18.5 Chronic kidney disease, stage 5; R77.8 Other specified abnormalities of plasma proteins; N39.0 Urinary tract infection, site not specified; R53.1 Weakness; Z86.73 Personal history of transient ischemic attack (TIA), and cerebral infarction without residual deficits; I48.91 Unspecified atrial fibrillation; Z79.01 Long term (current) use of anticoagulants; G40.909 Epilepsy, unspecified, not intractable, without status epilepticus; F32.9 Major depressive disorder, single episode, unspecified; Z20.822 Contact with and (suspected) exposure to COVID-19
CPT/HCPCS: 36415; 70450; 71045; 80048; 80053; 81001; 81003; 81015; 82550; 83605; 84145; 84484; 85025; 85610; 85730; 87040; 87077; 87086; 87186; 87635; 93005; 96372; 96374; 97162; 97530; 97535; 99284; C9803; G0378; J1644